=== PATIENT | male | born 1960 | race African-American/Black ===

== ENCOUNTER 2016-07-16 04:02 | Emergency (ER) | payer OTHER ==
[~2016-07-16] VITALS: Ht 167.6 cm; Wt 64.0 kg
[~2016-07-16 04:02] MED LIST: CELEBREX200 MG PO; HYDROCHLOROTH12.5 M3 PO; HYDROXYZINE HCL25 MG PO; NAPROSYN500 MG PO; OXAYDO5 MG PO; PROAIR HFA8.5 GM IH; ROXICODONE5 MG PO; TAMIFLU75 MG PO; TESSALON PERLE100 MG PO; ULTRAM50 MG PO
[2016-07-16 05:56] VITALS: BP 148/85
== END 2016-07-16 06:09 | disposition home or self-care (01) ==
LOC: EME → EDBD 04:02 → EME 04:02
DX: R51 Headache (principal); R07.81 Pleurodynia; S01.81XA Laceration without foreign body of other part of head, initial encounter; W18.30XA Fall on same level, unspecified, initial encounter; J45.909 Unspecified asthma, uncomplicated; I10 Essential (primary) hypertension; B19.20 Unspecified viral hepatitis C without hepatic coma; F17.200 Nicotine dependence, unspecified, uncomplicated
CPT/HCPCS: 70450; 70486; 71101; 72125; 99281; 99284

== ENCOUNTER → 2018-01-10 | Outpatient (CLI) | payer OTHER ==
[~2018-01-10] VITALS: Ht 167.6 cm; Wt 65.3 kg
[~2018-01-10] MED LIST changes: +FLEXERIL10 MG PO; +INDOCIN SR75 MG PO; +PRINIVIL10 MG PO; +RANITIDINE HCL300 MG PO; +ZYLOPRIM300 MG PO
== END | disposition home or self-care (01) ==
LOC: AMB 12-13 12:45
PROC: 0DBP8ZX Excision of Rectum, Via Natural or Artificial Opening Endoscopic, Diagnostic (ICD-10-PCS; principal; 2018-01-10)
DX: D12.8 Benign neoplasm of rectum (principal); Z86.010 Personal history of colon polyps; Z80.0 Family history of malignant neoplasm of digestive organs; F17.200 Nicotine dependence, unspecified, uncomplicated
CPT/HCPCS: 88305; 93005; J0360; J3010